=== PATIENT | male | born 1985 | race Two or more races ===

== ENCOUNTER 2025-07-25 20:32 | Emergency (ER) | payer OTHER ==
[~2025-07-25] VITALS: Ht 180.3 cm; Wt 88.5 kg
[2025-07-25] MEDS ORDERED: ACETAMINOPHEN ES 500 MG TABLET ONE (21:22)
[2025-07-25] MEDS: ACETAMINOPHEN ES 500 MG TABLET PO ONE (21:23)
[2025-07-25 21:41] LABS: PLATELET COUNT (AUTO) 148 K/uL (150-450); RED BLOOD CELL COUNT(AUTO) 4.65 MIL/uL (4.5-6.0); RED CELL DISTRIBUTION WIDTH 12.6 % (11.5-15.0); WHITE BLOOD COUNT (AUTO) 6.9 K/uL (4.3-11.0)
[2025-07-25 21:56] LABS: CALCIUM, SERUM 9.0 mg/dL (8.5-10.1); CREATININE 0.7 mg/dL (0.6-1.3); SODIUM SERUM 139 mmol/L (136-145); UREA NITROGEN, BLOOD 15 mg/dL (7-18)
[2025-07-25 22:09] LABS: ASPARTATE AMINOTRANSFERASE 31 U/L (15-37); NT-PRO BNP 27 pg/mL (0-125); TOTAL PROTEIN, SERUM 7.3 g/dL (6.4-8.2)
[2025-07-25 23:21] VITALS: BP 132/84; TEMP 98.7; O2SAT 96
== END 2025-07-25 23:21 | disposition home or self-care (01) ==
LOC: ER 20:37
DX: R51.9 Headache, unspecified (principal); I10 Essential (primary) hypertension; F17.200 Nicotine dependence, unspecified, uncomplicated; R06.02 Shortness of breath
CPT/HCPCS: 36415; 70450-TC; 71045-TC; 80048-TC; 80076-TC; 83880; 84484-TC; 85025-TC